=== PATIENT | male | born 1970 | race African-American/Black ===

== ENCOUNTER → 2024-06-13 14:40 | Outpatient (BNVA) | payer SELFPAY | PROVIDERS: Visit Provider Physician Assistant Medical | DX: Z02.79 Encounter for issue of other medical certificate (principal) ==

== ENCOUNTER 2024-08-16 20:54 | Emergency (ER) | payer OTHER, SELFPAY ==
[2024-08-16 21:03] VITALS: BP 158/74; BP 160/80; PULSE 84; PULSE 91; RESP 15; TEMP 36.9; O2SAT 98; O2SAT 99; BMI 34.7
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
--- NOTE | 2024-08-16 21:35 | PC.NURSE ---
pt belongings placed in C1
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
[2024-08-16] MEDS: Doxycycline Monohydrate 100 MG CAPSULE PO (22:35)
--- NOTE | 2024-08-16 22:55 | PC.NURSE ---
pt medicated per MAR
[2024-08-16 23:42] VITALS: BP 107/75; PULSE 76; RESP 14; TEMP 37.1; O2SAT 97
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
[2024-08-16 23:50] VITALS: BP 107/75; PULSE 76; RESP 14; TEMP 37.1; O2SAT 97
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
== END 2024-08-16 23:51 | disposition home or self-care (01) ==
PROVIDERS: Emergency Provider Internal Medicine
DX: H93.12 Tinnitus, left ear (principal); L73.8 Other specified follicular disorders
CPT/HCPCS: 99283; 99284